=== PATIENT | male | born 1940 | race Caucasian/White ===

== ENCOUNTER 2016-09-25 10:11 | Emergency (ER) | payer OTHER ==
[2016-09-25 11:32] LABS: HEMOGLOBIN 13.5 gm/dl (14.0-17.5); RED BLOOD COUNT 4.29 M/UL (4.20-5.50); WHITE BLOOD COUNT 4.1 K/UL (4.5-11.0)
[2016-09-25 11:58] LABS: BUN/CREATININE RATIO 26 (0-10)
[2016-10-10] MEDS ORDERED: ASPIR-LOW81 MG PO (07:43)
[2016-10-10] MEDS ORDERED: TENORMIN 50 MG50 MG PO (07:43)
[2016-10-10] MEDS ORDERED: LOVASTATIN20 MG PO (07:44)
[2016-10-10] MEDS ORDERED: NITROSTAT 0.40.4 MG SL (07:44)
[2016-10-10] MEDS ORDERED: FINASTERIDE5 MG PO (07:44)
[2016-10-10] MEDS ORDERED: ISOSORBIDE MONO30 MG PO (07:45)
[2016-10-10] MEDS ORDERED: RANEXA500 MG PO (11:03)
== END 2016-09-25 15:52 | disposition home or self-care (01) ==
LOC: ER1 10:11
PROVIDERS: Specialist/Technologist Athletic Trainer
DX: R07.2 Precordial pain (principal); I25.10 Atherosclerotic heart disease of native coronary artery without angina pectoris; I21.3 ST elevation (STEMI) myocardial infarction of unspecified site; Z95.1 Presence of aortocoronary bypass graft; Z79.899 Other long term (current) drug therapy
CPT/HCPCS: 36415; 71010; 80053; 82550; 82553; 83874; 84484; 85025; 93005; 99285

== ENCOUNTER → 2016-10-03 | Outpatient (CLI) | payer OTHER ==
[~2016-10-03] MED LIST: ASPIR-LOW81 MG PO; FINASTERIDE5 MG PO; ISOSORBIDE MONO30 MG PO; LOVASTATIN20 MG PO; NITROSTAT 0.40.4 MG SL; RANEXA500 MG PO; TENORMIN 50 MG50 MG PO
== END ==
LOC: HEART 5 08:30
DX: I25.119 Atherosclerotic heart disease of native coronary artery with unspecified angina pectoris (principal); I10 Essential (primary) hypertension
CPT/HCPCS: 78452; 93306; A9502; J2785

== ENCOUNTER → 2016-10-08 | Outpatient (CLI) | payer OTHER ==
[2016-10-08 11:32] LABS: HEMOGLOBIN 13.6 gm/dl (14.0-17.5); RED BLOOD COUNT 4.31 M/UL (4.20-5.50); WHITE BLOOD COUNT 4.7 K/UL (4.5-11.0)
[2016-10-08 11:55] LABS: BUN/CREATININE RATIO 19 (0-10)
== END ==
LOC: LAB 10:16
PROVIDERS: Internal Medicine Interventional Cardiology
DX: Z01.812 Encounter for preprocedural laboratory examination (principal); I20.9 Angina pectoris, unspecified; Z79.01 Long term (current) use of anticoagulants
CPT/HCPCS: 36415; 80048; 85025; 85610; 85730; 93005

== ENCOUNTER 2021-11-22 21:08 | Observation (INO) | payer OTHER ==
[~2021-11-22] VITALS: Ht 167.6 cm; Wt 81.3 kg
[2021-11-22 23:15] LABS: HEMOGLOBIN 12.9 gm/dl (14.0-17.5); RED BLOOD COUNT 3.96 M/UL (4.20-5.50); WHITE BLOOD COUNT 9.1 K/UL (4.5-11.0)
[2021-11-22 23:37] LABS: BUN/CREATININE RATIO 22 (0-10)
[2021-11-23] MEDS ORDERED: CYCLOBENZAPRINE10 MG PO (11:15)
[2021-11-23] MEDS ORDERED: HYDROCODON-ACE1 EAC4 PO (11:15)
== END 2021-11-23 13:07 | disposition home or self-care (01) ==
LOC: ER1 21:08 → M/S 11-23 00:09 → CDU 11-23 00:09 → M/S 11-23 00:09
PROVIDERS: Physician Assistant; ADMIT Surgery
DX: S22.31XA Fracture of one rib, right side, initial encounter for closed fracture (principal); J93.83 Other pneumothorax; W11.XXXA Fall on and from ladder, initial encounter; I25.10 Atherosclerotic heart disease of native coronary artery without angina pectoris; N40.0 Benign prostatic hyperplasia without lower urinary tract symptoms; Z95.1 Presence of aortocoronary bypass graft; Z88.8 Allergy status to other drugs, medicaments and biological substances
CPT/HCPCS: 70450; 71045; 71260; 72125; 80053; 82550; 82553; 83690; 84484; 85025; 93005; 96374; 96375; 99285; G0378; J2270; J2405; Q9967

== ENCOUNTER 2021-12-18 12:54 | Emergency (ER) | payer OTHER ==
[~2021-12-18 12:54] MED LIST changes: +CYCLOBENZAPRINE10 MG PO; +HYDROCODON-ACE1 EAC4 PO
== END 2021-12-18 19:33 | disposition home or self-care (01) ==
LOC: ER1 12:54
DX: S61.512A Laceration without foreign body of left wrist, initial encounter (principal); I25.10 Atherosclerotic heart disease of native coronary artery without angina pectoris; Z95.1 Presence of aortocoronary bypass graft; I51.9 Heart disease, unspecified; Z23 Encounter for immunization; X58.XXXA Exposure to other specified factors, initial encounter
CPT/HCPCS: 12001; 73110; 90471; 90715; 99283